=== PATIENT | female | born 1990 | race African-American/Black ===

== ENCOUNTER 2020-07-17 09:56 | Inpatient (IN) | payer OTHER ==
[2020-07-17 10:26] LABS: CREATININE,URINE 49.4 mg/dL; PROTEIN/CREATININE RATIO,URINE 0.1 (<=0.2)
[2020-07-17 11:19] LABS: BASOPHILS % (AUTO) 0.3 %; EOSINOPHILS # (AUTO) 0.1 10^3/uL (0.0-0.7); EOSINOPHILS % (AUTO) 0.8 %; HGB - HEMOGLOBIN 12.6 g/dL (12.0-16.0); LYMPHOCYTES # (AUTO) 1.7 10^3/uL (1.5-3.5); LYMPHOCYTES % (AUTO) 19.3 %; MEAN CORPUSCULAR HEMOGLOBIN 31.7 pg (27.0-31.0); MEAN CORPUSCULAR HGB CONC 33.3 g/dL (32.0-36.0); MEAN PLATELET VOLUME 10.9 fL (7.9-10.8); MONOCYTES # (AUTO) 0.8 10^3/uL (0.0-1.0); MONOCYTES % (AUTO) 9.2 %; NEUTROPHILS % (AUTO) 69.2 %; PLT - PLATELET COUNT 170 10^3/uL (130-450); RED BLOOD COUNT 3.98 10^6/uL (4.20-5.40); RED CELL DISTRIBUTION WIDTH 13.2 % (12.0-15.0); WHITE BLOOD COUNT 8.6 x10^3/uL (4.8-10.8)
[2020-07-17 11:56] LABS: ALBUMIN 3.3 g/dL (3.2-5.5); ALBUMIN/GLOBULIN RATIO 0.9 (1.0-2.2); BILIRUBIN,TOTAL 0.8 mg/dL (0.2-1.0); CALCIUM 9.1 mg/dL (8.5-10.3); CREATININE 0.6 mg/dL (0.4-1.0); TOTAL PROTEIN 6.8 g/dL (6.7-8.2)
[2020-07-17] MEDS ORDERED: ONDANSETRON 4 MG/2 ML VIAL IVP PRN (12:36)
[2020-07-17] MEDS ORDERED: OXYTOCIN 10 UNIT/ML VIAL IM PRN (12:36)
[2020-07-17] MEDS ORDERED: TRANEXAMIC ACID 1,000 MG in SODIUM CHLORIDE 0.9% 100ML 100 ML IV PRN (12:36)
[2020-07-17] MEDS ORDERED: LIDOCAINE-MPF 1% 30 ML VIAL ID PRN (12:36)
[2020-07-17] MEDS ORDERED: ACETAMINOPHEN 325 MG TABLET PO PRN (12:36)
[2020-07-17] MEDS ORDERED: OXYTOCIN/SODIUM CHLORIDE 500 ML IV PRN (12:36)
[2020-07-17] MEDS ORDERED: SODIUM CHLORIDE FLUSH 0.9% 10 ML SYRINGE IVP PRN (12:36)
[2020-07-17] MEDS ORDERED: miSOPROStoL 200 MCG TABLET BC PRN (12:36)
[2020-07-17] MEDS ORDERED: METHYLERGONOVINE 0.2 MG/ML VIAL IM PRN (12:36)
[2020-07-17] MEDS ORDERED: CARBOPROST TROMETHAMINE 250 MCG/ML AMP IM PRN (12:36)
[2020-07-17] MEDS: miSOPROStoL 100 MCG TABLET BC SCH (12:55)
--- NOTE | 2020-07-17 13:20 | PROVIDER PROGRESS NOTE ---
- HPI Chief Complaint: Hypertension/PIH Current : Current EDU 07/26/20 Gestation 38 Weeks and 5 Days 2 Para 1 Vital Signs Temperature 37.2 C 07/17/20 10:08 Heart Rate 92 07/17/20 10:08 Respiratory Rate 20 07/17/20 10:08 Blood Pressure 151/95 H 07/17/20 10:08 O2 Saturation 99 07/17/20 10:08 Temperature 37.2 C 07/17/20 10:08 Heart Rate 90 07/17/20 11:35 Respiratory Rate 18 07/17/20 11:35 Blood Pressure 152/86 H 07/17/20 11:35 O2 Saturation 97 07/17/20 11:35 - Procedures OB Procedure Performed: NST NST Procedure: NST Procedure Start Date 07/17/20 Start Time 10:07 Stop Time 10:38 Vibroacoustic Stimulation Used No Patient States Movement Yes Service Date of procedure: 07/17/20 - Plan Plan: S: Kathi presents to [facility] for NST and serial BP monitoring at 38.5wks gestation secondary to gestational hypertension. She had mildly elevated BP at routine office visit last visit which was WNL on recheck. Today when she presented her BP was severely elevated at 160/100 and on repeat was 158/98. She was directed to [facility] immediately following her visit. She denies SHER, visual disturbances, RUQ or epigastric pain. She reports mild edema at the end of a long day when she has been on her feet all day. She denies vaginal bleeding or leakage of fluid. Reports intermittent BH contractions. Reports +FM. Denies hx gestational HTN or preeclampsia in first . O: Serial BPs 140s-150s/90s. PIH labs WNL SVE deferred NST reactive. Baseline 140, moderate variability, + accels, no decels No contractions appreciated via tocometry. A: 30yo @ 38.5wks gestation Gestational hypertension GBS neg NST reactive; FHT Category I P: Secondary to continually elevated BPs, pt will be moved to observation status on [facility] to receive pre-induction cervical ripening with misoprostol in anticipation for induction of labor secondary to gestational hypertension. Reviewed plan of care with pt and [facility] charge nurse RN at the bedside. Pt verbalized understanding and agrees to above plan. She denies further questions or concerns at this time. DIAGNOSIS: Gestational Hypertension
--- NOTE | 2020-07-17 13:40 | HISTORY & PHYSICAL EXAMINATION ---
Admit History - Visit Reason Visit Reason: Other - : 2 Parity: 1 Premature: 0 Ectopic: 0 : 0 Care: positive: [facility] Risk/History: positive: None Complications This : positive: induced HTN Smoking Status: Never smoker - Mother's Labs Mother's Blood Type: positive: O Mother's RH: positive: Positive GBS: positive: Group B Step Negative Rubella Status: positive: Immune Review of Systems - Constitutional Constitutional: denies: Fatigue, Fever, Chills - Eyes Eyes: denies: Pain, Blurred vision, Spots in vision, Dipolpia - Cardiovascular Cariovascular: denies: Chest pain, Edema - Respiratory Respiratory: denies: Cough, SOB at rest - Gastrointestinal Gastrointestinal: denies: Constipation, Diarrhea, Change in bowel habits - Genitourinary Genitourinary: denies: Dysuria, Frequency, Urgency, Hematuria - Integumentary Integumentary: denies: Rash, Pruritis - Neurological Neurological: denies: Headache Physical - Abdominal Exam Vital Signs: Temp Pulse Resp BP Pulse Ox 37.2 C 90 18 152/86 H 97 07/17/20 10:08 07/17/20 11:35 07/17/20 11:35 07/17/20 11:35 07/17/20 11:35 Contraction Frequency (min/apart): occasional Contraction Intensity: positive: Mild Uterine Resting Tone: positive: Soft - Monitoring Heart Rate Baseline: 140 Strip Review: positive: Category I - Presentation Presentation: positive: Vertex - Vaginal Exam Membranes: positive: Membranes intact - Speculum Exam Speculum Exam Performed: positive: No Plan for Labor - Plan For Labor I expect patient to be DC'd or transferred within 96 hours.: Yes Plan for Labor: HPI: This 30yo @ 38.5wks gestation presented to [facility] on 07/17/2020 as directed following her routine visit at [facility] secondary to new diagnosis of gestational hypertension. She had mildly elevated BP at routine office visit last visit which was WNL on recheck. Today when she presented her BP was severely elevated at 160/100 and on repeat was 158/98. She denies SHER, visual disturbances, RUQ or epigastric pain. She reports mild edema at the end of a long day when she has been on her feet all day. She denies vaginal bleeding or leakage of fluid. Reports intermittent BH contractions. Reports +FM. She has been a patient of [facility] since her transfer of care from [facility] at 31wks gestation. Of note, her was achieved with Paragard IUD in place and was removed at 6wks gestation. Her has remained uncomplicated with the exception of excessive weight gain in and newly diagnosed gestational hypertension. NST reactive in triage however her BP remained continually elevated (140s- 150s/90s). Her PIH labs were drawn and WNL. NST reactive. She will be placed on observation status on [facility] to receive pre-induction cervical ripening with misoprostol in anticipation for medical induction of labor. Dating criteria: LMP 10/20/2019 Initial ultrasound: 6.5wks c/w LMP dating Serial Exams: agree OB history: G1: 08/21/2015 @ 40.4wks; epidural; Female [id number]; [place], [place]; uncomplicated G2: Current; gestational hypertension Medications: PNV; TUMS Allergies: NKDA PMHx: Abnormal pap (LSIL)- needs repeat pap ; obesity Surgical Hx: SV (2014); [employer] 2011) Social Hx: Former smoker. No ETOH or IVDA. - [place]. [employer] Family Hx: Thyroid disorder - mother; IA<65 - mother; HTN - father, mother course: Initial U/S: at 6.5wks c/w LMP for MATTHEW 07/26/2020. Small anterior fibroid noted. O pos/Rubella immune VZV immune Gentic testing: Serum Int- Neg FAS: efw 50%. 3VC. SAMANTHA wnl. Glucola: 126 TDAP: 05/16/2020 GBS NEG HSV: denies self and partner Breast pump Rx : Has. Fed for 6 months, then decreased supply MOD: . Boy: Bill. pp contraception: POPs (this is a paragard , previous was a Nuvaring ) PAP: needs at 6wk PP Physical Exam: Normocephalic, atraumatic Heart RRR w/o M/G/R Lungs CTAB Abdomen gravid, soft, nontender SVE deferred FHR baseline 140s, moderate variability, + accels, no decels Contractions occasionally - mild Bilateral LE's trace edema Mood is good. Assessment: 30yo @ 38.5wks Gestational hypertension; PIH labs WNL FHR Category I GBS negative Plan: Place in observation status for preinduction cervical ripening with misoprostol (50mcg BC misoprostol q 4 hours) in anticipation for medical induction of labor secondary to gestational hypertension Continuous monitoring Epidural per patient request Reviewed plan of care with pt and pharmacist in charge at the bedside who verbalize understanding and agree with above plan. Pt denies further questions or concerns at this time.
[2020-07-18] MEDS ORDERED: ROPIVACAINE 0.2% 200 MG/100 ML BAG EP ONE (02:39)
[2020-07-18] MEDS ORDERED: fentaNYL 100 MCG/2 ML VIAL ONE (02:44)
--- NOTE | 2020-07-18 03:06 | ANESTHESIA ---
Pre-Anesthesia VS, & Labs - Diagnosis active labor - Procedure vaginal delivery Vital Signs: Temp Pulse Resp BP Pulse Ox 37.2 C 77 18 152/86 H 97 07/17/20 11:38 07/17/20 11:38 07/17/20 11:38 07/17/20 11:38 07/17/20 11:35 Height: 5 ft 6 in Weight (kg): 124.738 kg Body Mass Index: 44.4 BMI Classification: Morbidly Obese - NPO Other (clear liquids) - Is Patient ?: Yes - Lab Results Current Lab Results: Laboratory Tests 07/17/20 11:37: Sodium 135, Potassium 4.1, Chloride 105, Carbon Dioxide 20 L, Anion Gap 10.0, BUN 9, Creatinine 0.6, Estimated GFR (MDRD) 142, Glucose 81, Calcium 9.1, Total Bilirubin 0.8, AST 25, ALT 17, Alkaline Phosphatase 118, T otal Protein 6.8, Albumin 3.3, Globulin 3.5, Albumin/Globulin Ratio 0.9 L 07/17/20 11:37: Blood Type Recheck O POSITIVE 07/17/20 11:05: Blood Type O POSITIVE, Antibody Screen NEGATIVE 07/17/20 11:05: WBC 8.6, RBC 3.98 L, Hgb 12.6, Hct 37.8, MCV 95.0, MCH 31.7 H, MCHC 33.3, RDW 13.2, Plt Count 170, MPV 10.9 H, Neut # (Auto) 6.0, Lymph # (Auto) 1.7, [place] # (Auto) 0.8, Eos # (Auto) 0.1, Baso # (Auto) 0.0, Absolute Nucleated RBC 0.00, Nucleated RBC % 0.0 Fish Bones: 07/17/20 11:05 07/17/20 11:37 Home Medications and Allergies Active Medications Acetaminophen (Tylenol) 650 mg PO Q6H PRN PRN Reason: Pain or Fever Carboprost Tromethamine (Hemabate) 250 mcg IM Q15M PRN PRN Reason: Step 4: Hemorrhage protocol Stop: 07/22/20 12:37 Lactated Ringer's (Lr) 1,000 mls @ 100 mls/hr IV .Q10H DEBORAH Oxytocin/Sodium Chloride (Pitocin/Sodium Chloride) 500 mls @ 999 mls/hr IV PRN PRN; Protocol PRN Reason: POST- HEMORR PREVENTION Stop: 07/22/20 12:37 Tranexamic Acid 1,000 mg/ (Sodium Chloride) 110 mls @ 660 mls/hr IV .ONCE PRN PRN Reason: EBL >1200mL and within 3hr Stop: 07/22/20 12:37 Lidocaine HCl (Xylocaine-Mpf 1% Vial) 30 ml ID .ONCE PRN PRN Reason: PERINEAL REPAIR Stop: 07/22/20 12:37 Methylergonovine Maleate (Methergine Inj) 0.2 mg IM .ONCE PRN PRN Reason: Step 2: Hemorrhage protocol Stop: 07/22/20 12:37 Misoprostol (Cytotec) 800 mcg BC .ONCE PRN PRN Reason: Step 3: Hemorrhage protocol Stop: 07/22/20 12:37 Misoprostol (Cytotec) 50 mcg BC Q4HR DEBORAH Last Admin: 07/17/20 12:55 Dose: 50 mcg Documented by: Ondansetron HCl (Zofran Inj) 4 mg IVP Q4HR PRN PRN Reason: Nausea / Vomiting Oxytocin (Pitocin) 10 unit IM .ONCE PRN PRN Reason: Step one: If no IV access Stop: 07/22/20 12:37 Sodium Chloride (Normal Saline Flush 0.9%) 10 ml IVP 0100,0900,1700 DEBORAH Sodium Chloride (Normal Saline Flush 0.9%) 10 ml IVP PRN PRN PRN Reason: NEEDED PER PROVIDER ORDERS PNV Allergies/Adverse Reactions: Allergies Allergy/AdvReac Type Severity Reaction Status Date / Time No Known Drug Allergies Allergy Verified 07/17/20 18:18 Anes History & Medical History - Anesthetic History Family history of Anesthesia Complications: Denies Family history of Malignant Hyperthermia: Denies - Medical History Cardiovascular: reports: None Pulmonary: reports: None Gastrointestinal: reports: GERD (during ) Urinary: reports: None Neuro: reports: None Musculoskeletal: reports: None Endocrine/Autoimmune: reports: None Blood Disorders: reports: None Smoking Status: Never smoker Psychosocial: reports: No issues indicated History of Cancer?: No - Obstetrical History : 2 Parity: 1 Events: positive: None Complications: positive: induced HTN Exam General: Alert, Oriented x3, Cooperative, No acute distress Dental: WNL Mouth Opening: Greater than 4 Fingerbreadths Neck Mobility: Normal Mallampati classification: I Thyromental Distance: greater than 6 cm Mental/Cognitive Status: Alert/Oriented X3, Normal for patient Plan Anesthesia Type: Epidural Consent for Procedure(s) Verified and Reviewed: Yes Code Status: Attempt Resuscitation ASA classification: 2-Mild systemic disease Is this case an emergency?: No
[2020-07-18] MEDS ORDERED: ONDANSETRON 4 MG/2 ML VIAL IVP PRN (03:14)
[2020-07-18] MEDS ORDERED: ROPIVACAINE 0.2% 200 MG/100 ML BAG EP PRN (03:14)
[2020-07-18] MEDS ORDERED: NALOXONE 0.4 MG/ML VIAL IVP PRN (03:14)
[2020-07-18] MEDS ORDERED: ePHEDrine 50 MG/ML VIAL IVP PRN (03:14)
[2020-07-18] MEDS ORDERED: NALBUPHINE 10 MG/ML AMP IVP PRN (03:14)
[2020-07-18] MEDS: LACTATED RINGERS 1,000 ML IV SCH ×3 (03:49→15:35)
[2020-07-18] MEDS: OXYTOCIN/SODIUM CHLORIDE 500 ML IV SCH (05:30)
--- NOTE | 2020-07-18 06:45 | PROVIDER PROGRESS NOTE ---
Labor Progress Note - Uterine Monitoring Uterine Monitoring Mode: positive: External toco Contraction Frequency (min/apart): 4-6 Contraction Intensity: positive: Moderate Uterine Resting Tone: positive: Soft - Monitoring Monitor Mode: positive: External ultrasound Heart Rate Baseline: 140 Heart Rate Variability: positive: Absent; amplitude undetectable Accelerations: positive: Present, 15x15 Decelerations: positive: None Strip Review: positive: Category I - Vaginal Exam Dilation (in cm): 4 Effacement (%): 75 Station: -2 Cervical Position: Midposition - Labor Progress Note Labor Progress Note/Additional Text: S: [place] increasingly uncomfortable with contractions that continued s pontaneously and requested epidural for pain management. Comfortable with epidural currently. supportive at the bedside. O: FHR baseline 140s, moderate variability, occasional variable decelerations SVE 4/75/-3, soft, vertex SROM x 30 min BP normotensive s/p 1 dose of 50mcg BC misoprostol A: 30yo @ 38.6wks gestation Gestational HTN GBS neg P: Continuous monitoring Initiate pitocin for augmentation with titration per protocol Encouraged position changes in bed with peanut ball. Pt verbalized understanding and agrees to above plan. Denies further questions or concerns at this time.
--- NOTE | 2020-07-18 06:58 | PROVIDER PROGRESS NOTE ---
Labor Progress Note - Uterine Monitoring Uterine Monitoring Mode: positive: External toco Contraction Frequency (min/apart): 2-5 Contraction Intensity: positive: Strong Uterine Resting Tone: positive: Soft - Monitoring Monitor Mode: positive: External ultrasound Heart Rate Baseline: 130 Heart Rate Variability: positive: Moderate (6-25 bmp) Accelerations: positive: Present, 15x15 Decelerations: positive: Variable, Intermittent (<50% x20 min) Strip Review: positive: Category I - Vaginal Exam Dilation (in cm): 9 Effacement (%): 100 Station: -1 - Labor Progress Note Labor Progress Note/Additional Text: S: Feeling comfortable with epidural. supportive at the bedside. States she was able to get a couple of hours of very good sleep. O: BP 106/52 FHR baseline 130s, moderate variability, + accels, intermittent variable decelerations. Contractions palpate strong every 2-5 minutes with soft resting tone SVE 9/100/-1, stretchy and soft, vertex Pitocin initiated at 0531 and increased to a max infusion rate of 2mU/mL. Shut off at 0627 secondary to variable decelerations. A: 30yo @ 38.6wks gestation Gestational HTN - BP normotensive Medical induction of labor GBS neg FHR Category I P: Start pitocin @ 2mU/mL Continuous monitoring Anticipate
[2020-07-18] MEDS: SODIUM CHLORIDE FLUSH 0.9% 10 ML SYRINGE IVP SCH ×3 (07:18→15:35)
[2020-07-18] MEDS: miSOPROStoL 100 MCG TABLET BC SCH ×4 (07:18→15:35)
[2020-07-18] MEDS ORDERED: HYDROCORTISONE 1% CREAM 28 GM TUBE PR PRN (07:54)
[2020-07-18] MEDS ORDERED: WITCH HAZEL/GLYCERIN 1 PAD TOP PRN (07:54)
--- NOTE | 2020-07-18 08:17 | DELIVERY NOTE ---
Delivery Note - Labor Labor: positive: Augmented by oxytocin - Delivery Method Delivery Method: positive: Spontaneous vaginal delivery - Cervical Ripening Method Cervical Ripening Method: positive: Misoprostil - Presentation Presentation: positive: Vertex, HEIDY - left occiput anterior - Nuchal Cord Nuchal Cord: positive: Present, Reduced - Amniotic Fluid Description Amniotic Fluid Description: positive: Clear - Episiotomy Type Episiotomy Type: positive: None - Laceration Laceration: positive: None - Delivery Outcome Delivery Outcome: positive: Livebirth - [place] : positive: Placed in direct skin contact with mother, Stimulated, Warmed, [place] used sex: positive: Male - Cord Cord: positive: 3 vessels - Placenta Placenta: positive: Intact, Spontaneous - Estimated Blood Loss Estimated Blood Loss (in cc): 150 - Post Delivery Events Post Delivery Events: positive: No post delivery events - Delivery Comments (Free Text/Narrative) Delivery Comments (Free Text/Narrative): Labor: This 30yo @ 38.6wks gestation by LMP c/w first trimester ultrasound presented on 07/17/2020 at approximately 1000 secondary to new diagnosis of gestational hypertension. SVE was deferred secondary to lack of contractions. She was monitoring in outpatient triage and BP remained elevated. PIH labs were WNL. Pt was placed in observation status to begin medical induction of labor secondary to gestational hypertension. She received pre- induction cervical ripening with 1 dose of 50mcg BC misoprostol. She continued to spontaneously contract following administration of misoprostol. She progressed to 4/75/-2, vertex and requested epidural for pain management which was placed at 0252 for adequate control of pain. Pitocin was initiated for labor augmentation for a maximum infusion rate of 2mU/mL. FHR pattern demonstrated Category I pattern. Normal labor course. SROM occurred at 0338 and was noted to be a moderate amount of clear fluid. Patient progressed to c/c/0 at 0737. : Normal of viable male on 07/18/2020 at 0743. Nuchal cord x 1 - reduced. The was stimulated, dried, and placed skin to skin. 's were 9/9 at 1 and 5 min respectively. Pitocin administered via IV for hemostasis. The umbilical cord was allowed to stop pulsating at which time it was doubly clamped by CNM and cut by FOB. 3VC. Cord blood was obtained. Gentle downward traction applied to umbilical cord for active management of third stage. Placenta delivered spontaneously and intact at 0747. EBL 150mL. Fourth stage: Uterine fundus firm and there is no excessive bleeding. The perineum, vagina, and cervix were inspected and found to be intact. initiated. Family bonding well. Both mother and baby were left in stable condition.
[2020-07-18] MEDS: DOCUSATE SODIUM 100 MG CAPSULE PO SCH ×2 (08:20→20:18)
[2020-07-18] MEDS: IBUPROFEN 800 MG TABLET PO SCH ×3 (08:20→20:18)
[2020-07-18] MEDS: ACETAMINOPHEN 500 MG TABLET PO PRN ×2 (08:21→16:15)
[2020-07-18 19:26] LABS: ALBUMIN 2.8 g/dL (3.2-5.5); ALBUMIN/GLOBULIN RATIO 0.9 (1.0-2.2); BASOPHILS % (AUTO) 0.2 %; BILIRUBIN,TOTAL 0.7 mg/dL (0.2-1.0); CALCIUM 8.4 mg/dL (8.5-10.3); CREATININE 0.7 mg/dL (0.4-1.0); EOSINOPHILS # (AUTO) 0.1 10^3/uL (0.0-0.7); EOSINOPHILS % (AUTO) 1.1 %; HGB - HEMOGLOBIN 11.6 g/dL (12.0-16.0); LYMPHOCYTES # (AUTO) 1.8 10^3/uL (1.5-3.5); LYMPHOCYTES % (AUTO) 14.9 %; MEAN CORPUSCULAR HEMOGLOBIN 31.6 pg (27.0-31.0); MEAN CORPUSCULAR VOLUME 95.9 fL (81.0-99.0); MEAN PLATELET VOLUME 10.7 fL (7.9-10.8); MONOCYTES # (AUTO) 1.1 10^3/uL (0.0-1.0); MONOCYTES % (AUTO) 8.6 %; NEUTROPHILS # (AUTO) 9.2 10^3/uL (1.5-6.6); NEUTROPHILS % (AUTO) 74.3 %; PLT - PLATELET COUNT 148 10^3/uL (130-450); RED BLOOD COUNT 3.67 10^6/uL (4.20-5.40); RED CELL DISTRIBUTION WIDTH 13.3 % (12.0-15.0); TOTAL PROTEIN 5.9 g/dL (6.7-8.2); WHITE BLOOD COUNT 12.3 x10^3/uL (4.8-10.8)
[2020-07-18 21:45] LABS: CREATININE,URINE 157.4 mg/dL; PROTEIN/CREATININE RATIO,URINE 0.2 (<=0.2)
[2020-07-19] MEDS: ACETAMINOPHEN 500 MG TABLET PO PRN ×3 (02:19→18:30)
[2020-07-19] MEDS: IBUPROFEN 800 MG TABLET PO SCH ×4 (02:20→21:34)
--- NOTE | 2020-07-19 07:38 | PROVIDER PROGRESS NOTE ---
Subjective - Subjective Subjective: S: Bonding well with baby. without difficulty. Pain well controlled with oral medications. Bleeding decreased and is light. Did have 2 "fist-sized" clots last night when getting up to the bathroom. States bleeding has significantly decreased since that time. Denies dizziness or lightheadedness. She has agreed to stay another day/night secondary to gestational HTN which has persisted during her course. She denies SHER, visual disturbances, RUQ or epigastric pain. No edema. supportive at the bedside. O: BPs 135-152/76-94; T 36.8, RR 18; HR 69 Heart RRR w/o M/G/R, lungs CTAB, abdomen soft and nontender with fundus firm at U-1. Light lochia rubra. Perineum intact. Bilateral LE's trace edema. Hgb: 12.6-->11.6 Hct: 37.8-->35.2 PLT: 170-->148 AST: 25-->24 ALT: 17-->16 Admit Pro/creat ratio: 0.1 A: 30yo -->P2 PPD#1 s/p TSVD of viable male Gestational hypertension - persistent . Moderate range; PIH labs WNL Perineum intact P: Repeat PIH labs today. Continue serial BPs - parameters to call reviewed with CAMILLA RN at the bedside. Continue routine care and medications. Evaluate for discharge home tomorrow. Pt verbalized understanding and agrees to above plan. She denies further questions or concerns at this time. Objective - Vital Signs/Intake & Output Vital Signs: Vital Signs x48h Temp Pulse Resp BP Pulse Ox 07/19/20 03:51 36.8 C 69 18 145/85 H 98 07/18/20 23:36 37.0 C 71 18 154/82 H 100 Intake & Output: Intake & Output 07/16/20 07/17/20 07/18/20 07/19/20 23:59 23:59 23:59 23:59 Intake Total 480 1402.284 Output Total 600 Balance 480 802.284 - Lab Results Fish Bones: 07/18/20 19:08 07/18/20 19:08 Other Labs: Lab Results x24hrs 07/18/20 07/18/20 07/18/20 Range/Units 21:10 19:08 19:08 WBC 12.3 H (4.8-10.8) x10^3/uL RBC 3.67 L (4.20-5.40) 10^6/uL Hgb 11.6 L (12.0-16.0) g/dL Hct 35.2 L (37.0-47.0) % MCV 95.9 (81.0-99.0) fL MCH 31.6 H (27.0-31.0) pg MCHC 33.0 (32.0-36.0) g/dL RDW 13.3 (12.0-15.0) % Plt Count 148 (130-450) 10^3/uL MPV 10.7 (7.9-10.8) fL Neut # (Auto) 9.2 H (1.5-6.6) 10^3/uL Lymph # (Auto) 1.8 (1.5-3.5) 10^3/uL [place] # (Auto) 1.1 H (0.0-1.0) 10^3/uL Eos # (Auto) 0.1 (0.0-0.7) 10^3/uL Baso # (Auto) 0.0 (0.0-0.1) 10^3/uL Absolute Nucleated RBC 0.00 x10^3/uL Nucleated RBC % 0.0 /100WBC Sodium 137 (135-145) mmol/L Potassium 4.1 (3.5-5.0) mmol/L Chloride 105 (101-111) mmol/L Carbon Dioxide 23 (21-32) mmol/L Anion Gap 9.0 (6-13) BUN 10 (6-20) mg/dL Creatinine 0.7 (0.4-1.0) mg/dL Estimated GFR (MDRD) 119 (>89) Glucose 100 (70-100) mg/dL Calcium 8.4 L (8.5-10.3) mg/dL Total Bilirubin 0.7 (0.2-1.0) mg/dL AST 24 (10-42) IU/L ALT 16 (10-60) IU/L Alkaline Phosphatase 93 (42-121) IU/L Total Protein 5.9 L (6.7-8.2) g/dL Albumin 2.8 L (3.2-5.5) g/dL Globulin 3.1 (2.1-4.2) g/dL Albumin/Globulin Ratio 0.9 L (1.0-2.2) Urine Creatinine 157.4 mg/dL Ur Total Protein Timed 36 mg/dL Protein/Creatinin Ratio 0.2 (<=0.2)
[2020-07-19] MEDS: DOCUSATE SODIUM 100 MG CAPSULE PO SCH ×2 (07:58→21:34)
[2020-07-19] MEDS: miSOPROStoL 100 MCG TABLET BC SCH ×6 (10:19→18:04)
[2020-07-19] MEDS: SODIUM CHLORIDE FLUSH 0.9% 10 ML SYRINGE IVP SCH ×4 (10:20→18:04)
[2020-07-19] MEDS: OXYTOCIN/SODIUM CHLORIDE 500 ML IV SCH (10:20)
[2020-07-19] MEDS: LACTATED RINGERS 1,000 ML IV SCH ×2 (10:21→16:09)
[2020-07-19 12:16] LABS: HGB - HEMOGLOBIN 12.2 g/dL (12.0-16.0); MEAN CORPUSCULAR HEMOGLOBIN 32.5 pg (27.0-31.0); MEAN CORPUSCULAR HGB CONC 33.5 g/dL (32.0-36.0); MEAN CORPUSCULAR VOLUME 97.1 fL (81.0-99.0); MEAN PLATELET VOLUME 10.7 fL (7.9-10.8); RED BLOOD COUNT 3.75 10^6/uL (4.20-5.40); RED CELL DISTRIBUTION WIDTH 13.6 % (12.0-15.0); WHITE BLOOD COUNT 11.9 x10^3/uL (4.8-10.8)
[2020-07-19 12:32] LABS: ALBUMIN 3.3 g/dL (3.2-5.5); BILIRUBIN,TOTAL 0.4 mg/dL (0.2-1.0); CALCIUM 8.8 mg/dL (8.5-10.3); CREATININE 0.6 mg/dL (0.4-1.0); TOTAL PROTEIN 6.7 g/dL (6.7-8.2)
[2020-07-20] MEDS: ACETAMINOPHEN 500 MG TABLET PO PRN (03:39)
[2020-07-20] MEDS: IBUPROFEN 800 MG TABLET PO SCH ×2 (03:39→10:14)
[2020-07-20 07:55] VITALS: BP 133/86
--- NOTE | 2020-07-20 08:00 | PROVIDER PROGRESS NOTE ---
Subjective - Subjective Subjective: FINAL PROGRESS NOTE: S: Bonding well with baby. without difficulty and states her milk has started to come in. Bleeding decrease and is light. Pain well controlled with oral medications. She denies SHER, visual disturbances, RUQ or epigastric pain. supportive at the bedside. They are excited to get to go home today. O: BP 136/80, T 36.8, RR 18, HR 71 Labs: Hgb: 12.6-->11.6-->12.2 Hct: 37.8-->35.2-->36.4 PLT: 170-->148-->164 AST: 25-->24-->25 ALT: 17-->16-->15 Heart RRR w/o M/G/R, lungs CTAB, abdomen soft and nontender with fundus firm at U-2, light lochia rubra, perineum intact, bilateral LE's trace edema. A: 30yo -->P2 PPD#2 Gestational HTN - asymptomatic; labs WNL; normal to mildly elevated BP during her course Perineum intact P: Reviewed pp self care and warning s/sx. Discussed when to present urgently. Encouraged continuation of PNV while Encouraged continuation of ibuprofen and tylenol OTC as needed for pain management Specifically discussed warning s/sx for pp preeclampsia - pt aware of symptoms and when to present if developed. Pt to return early next week for BP check at [facility] and sooner PRN. Pt will then f/u in 3 weeks for routine pp visit and in 6 weeks for routine pp visit or sooner PRN. Pt verbalized understanding and agrees to above plan. She denies further questions or concerns at this time. Objective - Vital Signs/Intake & Output Vital Signs: Vital Signs x48h Temp Pulse Resp BP Pulse Ox 07/20/20 03:50 36.8 C 71 18 136/80 H 99 07/20/20 00:10 36.9 C 66 18 136/80 H 99 Intake & Output: Intake & Output 07/17/20 07/18/20 07/19/20 07/20/20 23:59 23:59 23:59 23:59 Intake Total 480 1402.284 48.716 Output Total 600 Balance 480 802.284 48.716 - Lab Results Fish Bones: 07/19/20 12:10 07/19/20 12:10 Other Labs: Lab Results x24hrs 07/19/20 07/19/20 Range/Units 12:10 12:10 WBC 11.9 H (4.8-10.8) x10^3/uL RBC 3.75 L (4.20-5.40) 10^6/uL Hgb 12.2 (12.0-16.0) g/dL Hct 36.4 L (37.0-47.0) % MCV 97.1 (81.0-99.0) fL MCH 32.5 H (27.0-31.0) pg MCHC 33.5 (32.0-36.0) g/dL RDW 13.6 (12.0-15.0) % Plt Count 164 (130-450) 10^3/uL MPV 10.7 (7.9-10.8) fL Sodium 138 (135-145) mmol/L Potassium 4.2 (3.5-5.0) mmol/L Chloride 108 (101-111) mmol/L Carbon Dioxide 23 (21-32) mmol/L Anion Gap 7.0 (6-13) BUN 9 (6-20) mg/dL Creatinine 0.6 (0.4-1.0) mg/dL Estimated GFR (MDRD) 142 (>89) Glucose 89 (70-100) mg/dL Calcium 8.8 (8.5-10.3) mg/dL Total Bilirubin 0.4 (0.2-1.0) mg/dL AST 25 (10-42) IU/L ALT 15 (10-60) IU/L Alkaline Phosphatase 92 (42-121) IU/L Total Protein 6.7 (6.7-8.2) g/dL Albumin 3.3 (3.2-5.5) g/dL Globulin 3.4 (2.1-4.2) g/dL Albumin/Globulin Ratio 1.0 (1.0-2.2)
--- NOTE | 2020-07-20 08:01 | Discharge Plan ---
Discharge Plan Problem Reviewed?: Yes Disposition: Home, Self Care Condition: Good Diet: Regular Activity Restrictions: No Restrictions Shower Restrictions: No Weight Bearing: Full Weight No Smoking: If you smoke, Please STOP! Call for help. Follow-up with: Cecy Edwards CNM, ARNP [Provider Admit Priv/Credential] -
[2020-07-20] MEDS: DOCUSATE SODIUM 100 MG CAPSULE PO SCH (10:14)
--- NOTE | 2020-07-20 10:48 | Labor Flowsheet ---
Labor Flowsheet Datetime Report Generated by CPN: 07/20/2020 10:48 Datetime: 07/20/2020 07:25 VITAL SIGNS NBP Sys/Carolee/Mean (mmHg): 133 : 86 : 96 Pulse: 77 SpO2 (%): 100 LaborFlag: Labor Datetime: 07/18/2020 07:47 Stage of : Labor Datetime: 07/18/2020 07:43 UTERINE ACTIVITY Monitor Mode: External Frequency (min): 1.5-3.5 Quality: Strong Duration (sec): 60-80 Pattern: Normal: <= 5 Contractions in 10 Minutes Resting Tone (Palpate): Relaxed ASSESSMENT A Monitor Mode: Telemetry FHR Baseline Rate : 125 Variability: Moderate 6-25 bpm Accelerations: None Decelerations: Late Category: Category II Comments: Maternal HR traced at times due to pushing and maternal position Oxygen Method: Room Air Datetime: 07/18/2020 07:38 STAGE 2 Pushing: Coached on Pushing; No Urge to Push Pushing Position: Pushing with Contractions; Pushing Lithotomy Pushing Progress: Descent with Pushing Datetime: 07/18/2020 07:28 Stage 2 Comments: Trial push Datetime: 07/18/2020 07:27 VAGINAL EXAM Dilatation (cm): 9.0 Exam by: Cecy Jerry, CNM, TROUBLE LOCATER COMMUNICATION Communication: Provider at Bedside Communication Comments: Provider at bedside Datetime: 07/18/2020 06:27 Actions for Decelerations: Side to Side; Pitocin Off; IV Bolus; Sterile Vaginal Exam MEDICATIONS Pitocin (milliunits): Discontinued Datetime: 07/18/2020 06:12 Patient Position/Activity: Left Tilt Datetime: 07/18/2020 04:42 Contraction Comments: pt not feeling any Datetime: 07/18/2020 04:19 PATIENT CARE IV/Blood Work: IV Bolus Started Datetime: 07/18/2020 04:05 Provider Notified (Name): A. Jerry CNM Notification Reason: Status Update; Uterine Activity (Annotations: made aware of cat 2 strip.) Datetime: 07/18/2020 04:00 Monitor Interventions for FHR: Ultrasound Adjusted Datetime: 07/18/2020 03:45 Effacement (%): 80 Station: 0 Vaginal Bleeding: None Cervix, Consistency: Soft Cervix, Position: Midposition Datetime: 07/18/2020 03:38 Membrane Status: Ruptured Membranes Rupture Method: Spontaneous Amniotic Fluid Color: Clear Amniotic Fluid Amount: Small Amniotic Fluid Odor: Normal Datetime: 07/18/2020 02:55 Epidural Positioning: Side Lying Datetime: 07/18/2020 02:52 Epidural Procedure: Test Dose Datetime: 07/18/2020 02:35 ANESTHESIA Anesthesia Plans: Epidural Anesthesia Interview: I Datetime: 07/18/2020 02:05 Anesthesia Comments: pt requesting epidural, anesthesia notified via phone. Datetime: 07/17/2020 21:42 Respirations: 16 Datetime: 07/17/2020 21:13 Comfort Measures: Hot Shower/Tub/Spa (Annotations: taking a bath) Datetime: 07/17/2020 19:32 Temperature (C): 37.1 Temperature Route: Oral Datetime: 07/17/2020 18:09 PAIN Pain Scale: 4 Pain Presence: Intermittent Pain Type: Cramping; Ache Pain Location: Abdomen; Back Pain Relief Measures: Comfort Measures Pain Coping: Talking Through Contractions Datetime: 07/17/2020 17:20 Patient Care Comments: Cervical ripening on hold. Will plan for every hour VS and will start EFM a gain when able to give next dose of Miso. Datetime: 07/17/2020 16:02 FHR Baseline Changes: No Baseline Change Datetime: 07/17/2020 15:07 I/O Interventions: Up to BR Datetime: 07/17/2020 15:01 Pain Goal: 6 Datetime: 07/17/2020 12:56 Cervical Ripening Agents: Cytotec @ 50 Medication Comments: buccal
--- NOTE | 2020-07-20 12:01 | DISCHARGE SUMMARY ---
Physician: BRANDY Tracy DATE OF ADMISSION: 07/18/2020 DATE OF DISCHARGE: 07/20/2020 DIAGNOSES ON ADMISSION 1. A 30-year-old G2, P1, 0-0-1, at 38 and 5 weeks gestation. 2. Gestational hypertension. 3. Group B streptococcus negative. DIAGNOSES ON DISCHARGE 1. A 30-year-old G2, P2,0-0-2, status post spontaneous vaginal delivery on 07/18/2020. 2. Gestational hypertension with normal to mildly elevated blood pressures . 3. -induced hypertension (PIH) labs within normal limits. 4. Normal recovery. BRIEF HISTORY: She is a patient of [facility], who presented on 07/18/2020 secondary to new diagnosis of gestational hypertension. She was given 1 dose of 50 mcg buccal misoprostol for effective cervical ripening. She received Pitocin for labor augmentation with a maximum infusion ra te of 2 milliunits per mL She progressed to spontaneously deliver a viable male infant on 07/18/2020 at 0743 hours. Apgars were 9 and 9 at 1 and 5 minutes, respectively. The perineum, vagina and cervix were inspected and found to be intact. EBL 150 mL She has been doing well in her course. She is ambulating and tolerating a regular diet. She is urinating without difficulty and her lochia is normal. Her pain is well controlled with oral medications. Her PIH labs have remained within normal limits. Her blood pressures have been mildly elevated on occasion but overall, have remained within normal limits . She has denied any warning signs and symptoms for preeclampsia. She will be discharged home today on postpar wood day #2 with instructions to continue her vitamins while and to continue ib uprofen and Tylenol [id number] as needed for pain management. She intends to follow up with my self at [facility] [place] in 1 week for a blood pressure check. She will then follow up in 3 weeks for a routine visit. She has been given precautions to call if she has any worsen ing fevers, chills, abdominal pain, increased bleeding or foul-smelling vaginal lochia. In addition, she has been given precautions to present if she has new onset headache, right upper quadrant or epi gastric pain, significant edema or visual disturbances. TD: 07/20/2020 08:07
== END 2020-07-20 10:47 | disposition home or self-care (01) | DRG 807 ==
LOC: WFO 09:56 → FBP 09:59 → WFO 12:35 → FBP 12:36 → OBSVTOIN 07-18 02:10
PROVIDERS: ADMIT Nurse Practitioner Obstetrics & Gynecology; ATTEND Nurse Practitioner Obstetrics & Gynecology
PROC: 10E0XZZ Delivery of Products of Conception, External Approach (ICD-10-PCS; principal; 2020-07-18)
DX: O13.4 Gestational [pregnancy-induced] hypertension without significant proteinuria, complicating childbirth (principal); Z37.0 Single live birth; O69.81X0 Labor and delivery complicated by cord around neck, without compression, not applicable or unspecified; O99.62 Diseases of the digestive system complicating childbirth; K21.9 Gastro-esophageal reflux disease without esophagitis; Z3A.38 38 weeks gestation of pregnancy; Z87.891 Personal history of nicotine dependence
CPT/HCPCS: 36415; 59025; 80053; 82570; 84156; 85025; 85027; 86850; 86900; 86901; A9270; G0378; J7120

== ENCOUNTER 2020-07-24 09:57 | Outpatient (CLI) | payer OTHER ==
[2020-07-24 10:27] LABS: HGB - HEMOGLOBIN 12.3 g/dL (12.0-16.0); MEAN CORPUSCULAR HEMOGLOBIN 31.9 pg (27.0-31.0); MEAN CORPUSCULAR HGB CONC 33.1 g/dL (32.0-36.0); MEAN CORPUSCULAR VOLUME 96.4 fL (81.0-99.0); MEAN PLATELET VOLUME 9.9 fL (7.9-10.8); RED BLOOD COUNT 3.86 10^6/uL (4.20-5.40); RED CELL DISTRIBUTION WIDTH 13.2 % (12.0-15.0); WHITE BLOOD COUNT 7.7 x10^3/uL (4.8-10.8)
[2020-07-24 10:52] LABS: ALBUMIN 3.4 g/dL (3.2-5.5); BILIRUBIN,TOTAL 0.5 mg/dL (0.2-1.0); CALCIUM 8.6 mg/dL (8.5-10.3); CREATININE 0.9 mg/dL (0.4-1.0); TOTAL PROTEIN 6.9 g/dL (6.7-8.2)
[2020-07-24 11:14] LABS: CREATININE,URINE 74.4 mg/dL; PROTEIN/CREATININE RATIO,URINE 0.1 (<=0.2)
== END 2020-07-24 09:58 | disposition home or self-care (01) ==
LOC: LAB 09:57
PROVIDERS: ATTEND Nurse Practitioner Obstetrics & Gynecology
DX: O13.9 Gestational [pregnancy-induced] hypertension without significant proteinuria, unspecified trimester (principal)
CPT/HCPCS: 36415; 80053; 82570; 84156; 85027

== ENCOUNTER 2020-07-26 11:36 | Outpatient (CLI) | payer OTHER ==
--- NOTE | 2020-07-26 14:05 | Labor Flowsheet ---
Labor Flowsheet Datetime Report Generated by CPN: 07/26/2020 14:05 Datetime: 07/20/2020 07:25 VITAL SIGNS NBP Sys/Carolee/Mean (mmHg): 133 : 86 : 96 Pulse: 77 SpO2 (%): 100 LaborFlag: Labor Datetime: 07/18/2020 07:47 Stage of : Labor Datetime: 07/18/2020 07:43 UTERINE ACTIVITY Monitor Mode: External Frequency (min): 1.5-3.5 Quality: Strong Duration (sec): 60-80 Pattern: Normal: <= 5 Contractions in 10 Minutes Resting Tone (Palpate): Relaxed ASSESSMENT A Monitor Mode: Telemetry FHR Baseline Rate : 125 Variability: Moderate 6-25 bpm Accelerations: None Decelerations: Late Category: Category II Comments: Maternal HR traced at times due to pushing and maternal position Oxygen Method: Room Air Datetime: 07/18/2020 07:38 STAGE 2 Pushing: Coached on Pushing; No Urge to Push Pushing Position: Pushing with Contractions; Pushing Lithotomy Pushing Progress: Descent with Pushing Datetime: 07/18/2020 07:28 Stage 2 Comments: Trial push Datetime: 07/18/2020 07:27 VAGINAL EXAM Dilatation (cm): 9.0 Exam by: Cecy Jerry, CNM, BOMBSIGHT SPECIALIST COMMUNICATION Communication: Provider at Bedside Communication Comments: Provider at bedside Datetime: 07/18/2020 06:27 Actions for Decelerations: Side to Side; Pitocin Off; IV Bolus; Sterile Vaginal Exam MEDICATIONS Pitocin (milliunits): Discontinued Datetime: 07/18/2020 06:12 Patient Position/Activity: Left Tilt Datetime: 07/18/2020 04:42 Contraction Comments: pt not feeling any Datetime: 07/18/2020 04:19 PATIENT CARE IV/Blood Work: IV Bolus Started Datetime: 07/18/2020 04:05 Provider Notified (Name): A. Jerry CNM Notification Reason: Status Update; Uterine Activity (Annotations: made aware of cat 2 strip.) Datetime: 07/18/2020 04:00 Monitor Interventions for FHR: Ultrasound Adjusted Datetime: 07/18/2020 03:45 Effacement (%): 80 Station: 0 Vaginal Bleeding: None Cervix, Consistency: Soft Cervix, Position: Midposition Datetime: 07/18/2020 03:38 Membrane Status: Ruptured Membranes Rupture Method: Spontaneous Amniotic Fluid Color: Clear Amniotic Fluid Amount: Small Amniotic Fluid Odor: Normal Datetime: 07/18/2020 02:55 Epidural Positioning: Side Lying Datetime: 07/18/2020 02:52 Epidural Procedure: Test Dose Datetime: 07/18/2020 02:35 ANESTHESIA Anesthesia Plans: Epidural Anesthesia Interview: I Datetime: 07/18/2020 02:05 Anesthesia Comments: pt requesting epidural, anesthesia notified via phone. Datetime: 07/17/2020 21:42 Respirations: 16 Datetime: 07/17/2020 21:13 Comfort Measures: Hot Shower/Tub/Spa (Annotations: taking a bath) Datetime: 07/17/2020 19:32 Temperature (C): 37.1 Temperature Route: Oral Datetime: 07/17/2020 18:09 PAIN Pain Scale: 4 Pain Presence: Intermittent Pain Type: Cramping; Ache Pain Location: Abdomen; Back Pain Relief Measures: Comfort Measures Pain Coping: Talking Through Contractions Datetime: 07/17/2020 17:20 Patient Care Comments: Cervical ripening on hold. Will plan for every hour VS and will start EFM a gain when able to give next dose of Miso. Datetime: 07/17/2020 16:02 FHR Baseline Changes: No Baseline Change Datetime: 07/17/2020 15:07 I/O Interventions: Up to BR Datetime: 07/17/2020 15:01 Pain Goal: 6 Datetime: 07/17/2020 12:56 Cervical Ripening Agents: Cytotec @ 50 Medication Comments: buccal
== END 2020-07-26 11:40 | disposition home or self-care (01) ==
LOC: WFO 11:36 → FBP 11:37 → WFO 11:40
PROVIDERS: ATTEND Obstetrics & Gynecology
DX: O92.70 Unspecified disorders of lactation (principal); O13.5 Gestational [pregnancy-induced] hypertension without significant proteinuria, complicating the puerperium
CPT/HCPCS: 36415; 80053; 82570; 84156; 85027; 99404

== ENCOUNTER 2020-07-26 12:39 | Outpatient (CLI) | payer OTHER ==
[2020-07-26 13:05] LABS: HGB - HEMOGLOBIN 12.6 g/dL (12.0-16.0); MEAN CORPUSCULAR HEMOGLOBIN 31.5 pg (27.0-31.0); MEAN CORPUSCULAR HGB CONC 32.4 g/dL (32.0-36.0); MEAN CORPUSCULAR VOLUME 97.3 fL (81.0-99.0); MEAN PLATELET VOLUME 9.5 fL (7.9-10.8); RED CELL DISTRIBUTION WIDTH 13.3 % (12.0-15.0); WHITE BLOOD COUNT 8.1 x10^3/uL (4.8-10.8)
[2020-07-26 13:14] LABS: ALBUMIN 3.6 g/dL (3.2-5.5); BILIRUBIN,TOTAL 0.5 mg/dL (0.2-1.0); CALCIUM 8.9 mg/dL (8.5-10.3); CREATININE 0.9 mg/dL (0.4-1.0); TOTAL PROTEIN 7.2 g/dL (6.7-8.2)
[2020-07-26 13:29] LABS: CREATININE,URINE 93.8 mg/dL
[2020-07-26 13:30] LABS: TOTAL PROTEIN,URINE TIMED < 6 mg/dL
== END 2020-07-26 12:40 | disposition home or self-care (01) ==
LOC: LAB 12:39
PROVIDERS: ATTEND Nurse Practitioner Obstetrics & Gynecology
DX: O13.9 Gestational [pregnancy-induced] hypertension without significant proteinuria, unspecified trimester (principal); Z3A.00 Weeks of gestation of pregnancy not specified
CPT/HCPCS: 36415; 80053; 82570; 84156; 85027